=== PATIENT | male | born 2000 | race Two or more races ===

== ENCOUNTER 2018-09-28 03:04 | Emergency (ER) | payer OTHER ==
[~2018-09-28] VITALS: Ht 193 cm; Wt 104.3 kg
[2018-09-28] MEDS ORDERED: TETRACAINE HCL 0.5% OPTH SOLN 4 ML BTL OP ONE (03:30)
--- NOTE | 2018-09-28 04:33 | Diagnostic Imaging Report ---
Frontal views of the chest - 2 images HISTORY: Shortness of breath COMPARISON: None available. DISCUSSION: Portable technique, limits sensitivity of the exam. Overlying monitoring leads. Tubes/Lines: None Lungs and pleura: A few scattered punctate calcific densities, compatible with calcified granulomas. No evidence of a consolidative pneumonia or pulmonary alveolar edema. No definite pleural effusion or pneumothorax is identified. Heart and mediastinum: The cardiomediastinal silhouette appear(s) unremarkable. Bones and soft tissues: Appear unremarkable, given this limited exam. IMPRESSION: No acute radiographic abnormality. Signed by: Dr. Dontrell Frazier D.O., M.M.M. on 09/28/2018 4:29 AM
--- NOTE | 2018-09-28 04:33 | Diagnostic Imaging Report ---
CT MAXIO FAC/PARANAS WO HISTORY: Difficulty breathing, congestion COMPARISON: None. TECHNIQUE: Axial CT images through the face were obtained without contrast. Coronal/sagittal reformations were created. One or more of the following dose reduction techniques were used: Automated exposure control, adjustment of the mA and/or kV according to patient size, and/or utilization of iterative reconstruction technique. DISCUSSION: Mild bilateral maxillary sinus mucosal thickening involves the bilateral maxillary sinus ostia. Associated small bilateral maxillary sinus retention cysts are present. Mild mucosal thickening is also seen along the bilateral frontonasal recesses, bilateral olfactory recesses, bilateral sphenoethmoidal recesses, and bilateral sphenoid sinuses. Mild bilateral nasal cavity mucosal thickening involves the nasal septum and bilateral inferior turbinates. The nasal septum is deviated to the left. No acute fracture is seen. No destructive osseous lesions are seen. The orbits are intact. Intraorbital contents are grossly unremarkable. The adenoid, palatine, and lingual tonsils are mildly prominent. A few small left palatine tonsilloliths are present. Otherwise, the visualized soft tissues and intracranial compartment are grossly unremarkable. IMPRESSION: 1. Nonspecific, mild diffuse scattered bilateral paranasal sinus and nasal cavity mucosal thickening with involvement of the bilateral maxillary sinus ostia. 2. Small bilateral maxillary sinus retention cysts. 3. Mildly prominent adenoid, palatine, and lingual tonsils. Signed by: Dr. Dave Cottrell M.D. on 09/28/2018 4:29 AM
[2018-09-28] MEDS ORDERED: PREDNISONE20 MG PO (06:19)
[2018-09-28] MEDS ORDERED: AUGMENTIN 875-1 EACH PO (06:19)
[2018-09-28 06:43] VITALS: BP 148/72
--- NOTE | 2018-09-28 14:59 | NUR ---
LESLIE CALLED REGARDING RX WRITTEN FOR AUGMENT WHEN PT ALLG TO PCN. CHG TO AVOLOX 400 MG ONE PO QD X [address] CAROLINA MD
== END 2018-09-28 06:40 | disposition home or self-care (01) ==
LOC: ER 03:04
DX: R09.89 Other specified symptoms and signs involving the circulatory and respiratory systems (principal); J01.00 Acute maxillary sinusitis, unspecified
CPT/HCPCS: 70486; 71045; 99283